=== PATIENT | male | born 1965 | race Asian ===

== ENCOUNTER → 2024-04-23 | Outpatient (REF) | payer MEDICAID, SELFPAY ==
[2024-04-23 14:28] LABS: ALBUMIN 4.1 G/DL (3.2-5.2); ALKALINE PHOSPHATASE 58 U/L (40-129); ALT/SGPT 33 U/L (7.0-40); AST/SGOT 16 U/L (<34); BILIRUBIN,TOTAL 0.5 MG/DL (0.3-1.2); BLOOD UREA NITROGEN 12 MG/DL (9-23); CALCIUM LEVEL 9.3 MG/DL (8.5-10.1); CARBON DIOXIDE LEVEL 30 MMOL/L (20-31); CHLORIDE LEVEL 107 MMOL/L (98-107); CHOLESTEROL LEVEL 247 MG/DL (<200); CHOLESTEROL RISK RATIO 4.94 (<5); CREATININE FOR GFR 1.02 MG/DL (0.70-1.30); GLOMERULAR FILTRATION RATE > 60.0 (>56); GLUCOSE, FASTING 145 MG/DL (60-100); HDL CHOLESTEROL 49.9 MG/DL (>40); LDL CHOLESTEROL 174.1 MG/DL (<100); NON-HDL-C 197.1 MG/DL; POTASSIUM SERUM 4.8 MMOL/L (3.5-5.1); SODIUM LEVEL 139 MMOL/L (136-145); TOTAL PROTEIN 7.8 G/DL (5.7-8.2); TRIGLYCERIDES LEVEL 115 MG/DL (<150)
[2024-04-23 14:29] LABS: FREE T4 1.28 NG/DL (0.89-1.76); THYROID STIMULATING HORMONE 1.161 uIU/ML (0.55-4.78)
[2024-04-23 14:32] LABS: HEMOGLOBIN A1c 5.9 % (4.0-6.0)
[2024-04-23 14:55] LABS: HIV 1&2 SCREEN NEGATIVE (NEGATIVE)
[2024-04-23 15:02] LABS: HEPATITIS C VIRUS ABY INDEX < 0.02 INDEX (<0.8)
[2024-04-23 16:04] LABS: CREATININE, URINE 179.6 MG/DL; MAU/CREAT RATIO 2.2 MCG/MG (0.0-30.0)
[2024-04-26 15:38] LABS: PSA FREE 0.4 ng/mL; PSA TOTAL 1.3 ng/mL (< OR = 4.0)
== END ==
LOC: M LAB REF 13:13
PROVIDERS: ATTEND Physician Assistant
DX: E11.9 Type 2 diabetes mellitus without complications (principal); Z11.9 Encounter for screening for infectious and parasitic diseases, unspecified; E55.9 Vitamin D deficiency, unspecified; Z12.5 Encounter for screening for malignant neoplasm of prostate

== ENCOUNTER → 2024-10-22 | Day surgery (SDC) | payer MEDICAID ==
[~2024-10-22] VITALS: Ht 162.6 cm; Wt 54.2 kg
[~2024-10-22] MED LIST: ATOR1TAB21 PO; FAMO1TAB11 PO; METF-838 PO
[2024-10-22 14:02] VITALS: BP 113/71; TEMP 97; O2SAT 97
== END | disposition home or self-care (01) ==
LOC: M OPP 09:44
PROVIDERS: ATTEND Surgery
DX: Z12.11 Encounter for screening for malignant neoplasm of colon (principal); Z79.84 Long term (current) use of oral hypoglycemic drugs; Z79.899 Other long term (current) drug therapy